=== PATIENT | female | born 1980 | race Caucasian/White ===

== ENCOUNTER → 2017-06-04 | Outpatient (CLI) | payer OTHER | LOC: BMCIMAGING 14:41 | PROVIDERS: ATTEND Physician Assistant | DX: R10.11 Right upper quadrant pain (principal) ==

== ENCOUNTER 2017-06-05 14:24 | Emergency (ER) | payer OTHER ==
--- NOTE | 2017-06-05 14:46 | EDPHY ---
HPI/HX/ROS/PE/MDM Narrative: CHIEF COMPLAINT: Abdominal and back pain, dizzy, chills HISTORY OF PRESENT ILLNESS: The patient is a 36 y/o female with a history of kidney stones and ovarian cysts complaining of intermittent bilateral abdominal and back pain, chills, and dizziness for one month. During the past month she has felt nauseous intermittently and vomited several times, but lately her nausea has been consistent for 4 days. 4 days ago she had a sharp right abdominal pain radiating to her back. She has since had a dull pain in her right back. Eating food does not affect this pain. Her urine has had a foul smell and she feels like she has not been able to void completely. Denies hematuria. Yesterday she saw her PCP, Bree DIEGO, who noticed that there was an elevated WBC of 10.86 and had some concerns regarding patients urine. (Patient initially stated white cells were presents and then stated red cells. This urine has been cultures and is currently growing 3 colony counts.). She had a RUQ US yesterday, with normal results. No fever, cough, chest pain, shortness of breath, palpitations, diarrhea, headache, lightheadedness. REVIEW OF SYSTEMS: Aside from elements discussed in the HPI, a comprehensive 10-point review of systems was reviewed and is negative. PAST MEDICAL HISTORY: Kidney stone, ovarian cyst SOCIAL HISTORY: Lives in [place], friends at bedside, marijuana use, no IV drug use VITAL SIGNS: Reviewed by me GENERAL: Well-developed, well-nourished, resting comfortably in no respiratory distress. HEENT: Atraumatic. Eyes: No icterus, no injection. Mouth: moist mucous membranes. No erythema or lesions. Neck: supple with no adenopathy. LUNGS: Clear to auscultation bilaterally, no wheezes, rhonchi or rales. CARDIAC: Regular rate and rhythm, no rubs, murmurs or gallops. ABDOMEN: Palpation of abdomen results in increased epigastric discomfort but there is no tenderness to palpation. Soft, nontender, nondistended, bowel sounds normal. BACK: No CVA tenderness. EXTREMITIES: No trauma. No edema. Range of motion is normal throughout. NEURO: Alert and oriented, grossly nonfocal. SKIN: Warm and dry, no rash. PSYCHIATRIC: Normal mentation, no agitation. Portions of this note were transcribed by a medical orderly. I personally performed a history, physical exam, medical decision making, and confirmed accuracy of information the transcribed note. ED Course: The patient is a 36 y/o female with a history of kidney stones and ovarian cysts presenting with non-reproducible bilateral abdominal and low back pain. On exam the palpation of her abdomen results in increased epigastric discomfort but there is no tenderness to palpation. Yesterday she had a normal RUQ US, lipase, and LFT's. However, her PCP was concerned of an infection due to an elevated WBC of 10.86. Labs, UA, chest x-ray, and abdominopelvic CT ordered. 1L IV NS administered. 1559: Patient's urine does not reveal an infection, but it is very dilute. Her chest x-ray is negative for acute findings. 1634: Spoke with radiologist regarding patient's abdominopelvic CT. The CT reveals constipation and nonobstructive bilateral nephrolithiasis. 1639: Patient's urine cultures from yesterday reveal 3 colony counts, I do not suspect a UTI. 30mg IV Toradol administered. 1713: Reassessed patient and discussed laboratory and imaging findings. Upon further discussion, she now believes she has passed a kidney stone which caused her pain. I have advised her to use MiraLax for her constipation. Return precautions provided; patient is comfortable with this plan. MDM: After obtaining the patients history and performing an examination, differential diagnosis considered included but was not limited to appendicitis, cholecystitis, gastritis, pancreatitis, kidney stones, urinary tract infections and other causes. - Data Points Imaging: Discussed imaging studies w/ scallop raker Radiologist, I viewed and interpreted images myself Laboratory Results: Laboratory Results 06/05/17 15:36 06/05/17 15:36 Medications Given: Discontinued Medications Sodium Chloride (Ns) 1,000 mls @ 0 mls/hr IV ONCE ONE; Wide Open PRN Reason: Protocol Stop: 06/05/17 15:16 Last Admin: 06/05/17 15:54 Dose: 1,000 mls Ketorolac Tromethamine (Toradol) 30 mg IVP EDNOW ONE Stop: 06/05/17 16:40 Last Admin: 06/05/17 16:51 Dose: 30 mg General Time Seen by Provider: 06/05/17 14:41 Initial Vital Signs: Initial Vital Signs Temperature (C) 36.4 C 06/05/17 14:29 Heart Rate 108 H 06/05/17 14:29 Respiratory Rate 16 06/05/17 14:29 Blood Pressure 138/77 H 06/05/17 14:29 O2 Sat (%) 97 06/05/17 14:29 O2 Delivery Mode Room Air Allergies/Adverse Reactions: No Known Allergies Allergy (Unverified 06/05/17 14:28) Home Medications: Medication Instructions Recorded NK [No Known Home Meds] 06/05/17 Departure - Departure Disposition: Home, Routine, Self-Care Clinical Impression: Bilateral nephrolithiasis Constipation Qualifiers: Constipation type: unspecified constipation type Qualified Code(s): K59.00 - Constipation, unspecified Abdominal pain Qualifiers: Abdominal location: right upper quadrant Qualified Code(s): R10.11 - Right upper quadrant pain Condition: Good Instructions: Constipation (ED), Acute Abdominal Pain (ED) Additional Instructions: You have non-obstructing kidney stones. I recommend following up with a urologist in the next week. Take MiraLax as instructed for constipation. Follow-up with your primary doctor within 72 hours. Return to the Emergency Department for fever, chest pain, shortness of breath, increasing pain or other worsening of condition. Referrals: Bree Jeronimo PA [Primary Care Provider] - As per Instructions James De Leon MD [Medical Doctor] - As per Instructions Report Scribed for: Swati Nguyen Report Scribed by: Huong Maya Date of Report: 06/05/17 Time of Report: 14:46
[2017-06-05] MEDS ORDERED: NS 1,000 ML IV ONE (15:15)
[2017-06-05 15:44] LABS: PLATELET COUNT 277 10^3/uL (150-400)
[2017-06-05] MEDS ORDERED: KETOROLAC 30 MG/1 ML SDV IVP ONE (16:39)
[2017-06-05 17:00] VITALS: BP 127/75; PULSE 73; RESP 18; TEMP 97.9; O2SAT 95
== END 2017-06-05 17:45 | disposition home or self-care (01) ==
PROC: 3E0337Z Introduction of Electrolytic and Water Balance Substance into Peripheral Vein, Percutaneous Approach (ICD-10-PCS; principal; 2017-06-05)
DX: N20.0 Calculus of kidney (principal); K59.00 Constipation, unspecified; E86.9 Volume depletion, unspecified
CPT/HCPCS: 96374; J1885

== ENCOUNTER 2017-08-05 14:27 | Emergency (ER) | payer OTHER ==
[2017-08-05 14:34] VITALS: TEMP 97.3
[2017-08-05] MEDS ORDERED: NS 1,000 ML IV ONE (15:37)
--- NOTE | 2017-08-05 15:38 | EDPHY ---
General Time Seen by Provider: 08/05/17 15:25 Narrative: CHIEF COMPLAINT: Flank pain, urinary tract infection HISTORY OF PRESENT ILLNESS: Patient complains of right flank pain and possible urinary tract infection. She states that she has been dealing with right flank pain for approximately 3 weeks. It has worsened over the past 2 weeks. It is constant but does wax and wane. [id number] now, moderate to severe at times. Associated with increased urinary frequency, dysuria, malodorous urine, subjective fevers and sweats. No chest pain or shortness of breath. No lower abdominal pain. No vaginal bleeding or discharge. No pelvic pain. No difficulty with urination. She has a long history of nephrolithiasis with multiple stones past. She was seen here in June with bilateral nonobstructing nephrolithiasis with no intervention surgically. She has taken no medication. No other associated complaints or modifying factors. LMP ended 3 days ago REVIEW OF SYSTEMS: Ten systems reviewed and are negative unless otherwise noted in the HPI PCP: None currently SPECIALISTS: None PAST MEDICAL HISTORY: Nephrolithiasis, ovarian cysts PAST SURGICAL HISTORY: No recent surgical history SOCIAL HISTORY: Daily smoker. No drug or alcohol use. Works locally as a massage therapist FAMILY HISTORY: Noncontributory EXAMINATION General Appearance: Alert, no distress. Resting comfortably. Well-developed well-nourished. Head: normocephalic, atraumatic Eyes: Pupils equal and round, no conjunctival pallor or injection ENT, Mouth: Mucous membranes moist Neck: Normal inspection, supple, non-tender Respiratory: Lungs are clear to auscultation. No wheezing, rhonchi or crackles Cardiovascular: Regular rate and rhythm. No murmur with good signs of perfusion Gastrointestinal: Abdomen is soft and nondistended. Mild right CVA tenderness. No guarding. No tympany. No rigidity. Back: non-tender, no bony abnormalities Neurological: A&O, nonfocal, normal gait Skin: Warm and dry, no rash. No petechiae or purpura Extremities: Nontender, no pedal edema Psychiatric: Mood and affect normal DIFFERENTIAL DIAGNOSES: Including but not limited to nephrolithiasis, ureteral stone, renal colic, pyelonephritis, UTI MDM: 3:35 p.m. Right flank pain with history of bilateral nephrolithiasis and patient concern for urinary tract infection. She has had subjective fever and chills but afebrile here. Vital signs are within normal limits. She is in no acute distress. Her abdominal exam is benign with mild right flank pain. Urinalysis is pending. I have ordered laboratory studies, IV fluid, urine strainer and ultrasound of the retroperitoneum. She has had multiple CT scans in past, thus I am attempting to avoid radiation. Suspect nonobstructing nephrolithiasis, less likely obstructive uropathy. She is in no acute distress requiring no pain medications at this time. 4:27 p.m. Notified by radiologist Dr. Salinas. We discussed the ultrasound findings of the retroperitoneum. No obstructive uropathy present. 4:55 p.m. Patient re-evaluated. She is feeling well at this time. No flank pain. She does still have the dysuria. We discuss possibility of musculoskeletal pain. We discussed other urinary tract etiologies. Urine culture has been sent I do not feel she warrants empiric antibiotic coverage at this time. She has contacted a urologist while she was waiting in the emergency department room. She contacted Dr. Melton office and is arranging for an appointment. We discussed ice, heating pads and anti-inflammatories. We discussed ED precautions for worsening pain, difficulty urinating, fever or vomiting. At this point I do feel she is stable for discharge home, and she is declining any pain medication or prescription. She is comfortable this plan and discharged in stable condition. SUPERVISION: Patient was independently examined, but I discussed the case with my secondary supervising physician Dr. Villagomez - Diagnostics Imaging Results: Imaging Impressions Abdomen/Pelvis Ultrasound 08/05/17 15:37 Impression: 1. Normal renal ultrasound. 2. Limited assessment of known nephrolithiasis. Findings discussed with Chandana Tejada 08/05/2017 at 16:26. - History Smoking Status: Current every day smoker - Objective Vital Signs: Initial Vital Signs Temperature (C) 97.3 F 08/05/17 14:32 Heart Rate 91 08/05/17 14:32 Respiratory Rate 17 08/05/17 14:32 Blood Pressure 141/86 H 08/05/17 14:32 O2 Sat (%) 95 08/05/17 14:32 O2 Delivery Mode Room Air Allergies/Adverse Reactions: No Known Allergies Allergy (Verified 08/05/17 14:32) Home Medications: Medication Instructions Recorded NK [No Known Home Meds] 06/05/17 Laboratory Results: Laboratory Results 08/05/17 15:53 08/05/17 15:53 08/05/17 08/05/17 08/05/17 15:53 15:53 15:53 WBC 8.13 10^3/uL 10^3/uL (3.80-9.50) RBC 5.01 10^6/uL 10^6/uL (4.18-5.33) Hgb 15.4 g/dL g/dL (12.6-16.3) Hct 43.7 % % (38.0-47.0) MCV 87.2 fL fL (81.5-99.8) MCH 30.7 pg pg (27.9-34.1) MCHC 35.2 g/dL g/dL (32.4-36.7) RDW 12.7 % % (11.5-15.2) Plt Count 306 10^3/uL 10^3/uL (150-400) MPV 9.3 fL fL (8.7-11.7) Neut % (Auto) 65.2 % % (39.3-74.2) Lymph % (Auto) 26.2 % % (15.0-45.0) [place] % (Auto) 6.2 % % (4.5-13.0) Eos % (Auto) 1.6 % % (0.6-7.6) Baso % (Auto) 0.6 % % (0.3-1.7) Nucleat RBC Rel Count 0.0 % % (0.0-0.2) Absolute Neuts (auto) 5.30 10^3/uL 10^3/uL (1.70-6.50) Absolute Lymphs (auto) 2.13 10^3/uL 10^3/uL (1.00-3.00) Absolute Monos (auto) 0.50 10^3/uL 10^3/uL (0.30-0.80) Absolute Eos (auto) 0.13 10^3/uL 10^3/uL (0.03-0.40) Absolute Basos (auto) 0.05 10^3/uL 10^3/uL (0.02-0.10) Absolute Nucleated RBC 0.00 10^3/uL 10^3/uL (0-0.01) Immature Gran % 0.2 % % (0.0-1.1) Immature Gran # 0.02 10^3/uL 10^3/uL (0.00-0.10) Sodium 139 mEq/L mEq/L (135-145) Potassium 3.8 mEq/L mEq/L (3.5-5.2) Chloride 106 mEq/L mEq/L (97-110) Carbon Dioxide 23 mEq/l mEq/l (22-31) Anion Gap 10 mEq/L mEq/L (8-16) BUN 8 mg/dL mg/dL (7-23) Creatinine 0.7 mg/dL mg/dL (0.6-1.0) Estimated GFR > 60 Glucose 108 mg/dL H mg/dL (70-100) Calcium 9.8 mg/dL mg/dL (8.5-10.4) Total Bilirubin 0.5 mg/dL mg/dL (0.1-1.4) Conjugated Bilirubin 0.2 mg/dL mg/dL (0.0-0.5) Unconjugated Bilirubin 0.3 mg/dL mg/dL (0.0-1.1) AST 16 IU/L IU/L (14-46) ALT 34 IU/L IU/L (9-52) Alkaline Phosphatase 65 IU/L IU/L (38-126) Total Protein 6.8 g/dL g/dL (6.3-8.2) Albumin 4.3 g/dL g/dL (3.5-5.0) Lipase 65 IU/L IU/L (23-300) Beta HCG, Qual NEGATIVE Urine Color Urine Appearance Urine pH Ur Specific [place] Urine Protein Urine Ketones Urine Blood Urine Nitrate Urine Bilirubin Urine Urobilinogen Ur Leukocyte Esterase Urine RBC Urine WBC Ur Epithelial Cells Urine Bacteria Urine Mucus Urine Glucose 08/05/17 08/05/17 15:15 14:55 WBC RBC Hgb Hct MCV MCH MCHC RDW Plt Count MPV Neut % (Auto) Lymph % (Auto) [place] % (Auto) Eos % (Auto) Baso % (Auto) Nucleat RBC Rel Count Absolute Neuts (auto) Absolute Lymphs (auto) Absolute Monos (auto) Absolute Eos (auto) Absolute Basos (auto) Absolute Nucleated RBC Immature Gran % Immature Gran # Sodium Potassium Chloride Carbon Dioxide Anion Gap BUN Creatinine Estimated GFR Glucose Calcium Total Bilirubin Conjugated Bilirubin Unconjugated Bilirubin AST ALT Alkaline Phosphatase Total Protein Albumin Lipase Beta HCG, Qual Urine Color PALE YELLOW REJ Urine Appearance CLEAR REJ Urine pH 6.0 REJ (5.0-7.5) Ur Specific [place] 1.006 REJ (1.002-1.030) Urine Protein NEGATIVE REJ (NEGATIVE) Urine Ketones NEGATIVE REJ (NEGATIVE) Urine Blood NEGATIVE REJ (NEGATIVE) Urine Nitrate NEGATIVE REJ (NEGATIVE) Urine Bilirubin NEGATIVE REJ (NEGATIVE) Urine Urobilinogen NEGATIVE EU EU REJ (0.2-1.0) Ur Leukocyte Esterase NEGATIVE REJ (NEGATIVE) Urine RBC 1-3 /hpf /hpf (0-3) Urine WBC 1-3 /hpf /hpf (0-3) Ur Epithelial Cells TRACE /lpf /lpf (NONE-1+) Urine Bacteria 2+ /hpf H /hpf (NONE SEEN) Urine Mucus TRACE /lpf /lpf (NONE-1+) Urine Glucose NEGATIVE REJ (NEGATIVE) Medications Given: Discontinued Medications Sodium Chloride (Ns) 1,000 mls @ 0 mls/hr IV EDNOW ONE; Wide Open PRN Reason: Protocol Stop: 08/05/17 15:38 Last Admin: 08/05/17 15:51 Dose: 1,000 mls Departure - Departure Disposition: Home, Routine, Self-Care Clinical Impression: Acute flank pain Condition: Good Instructions: Flank Pain (ED), Musculoskeletal Pain (ED) Additional Instructions: 1. Recommend heating pad apply to affected area as needed 2. Recommend [id number] anti-inflammatories as discussed as needed 3. Contact Urology for outpatient follow-up 4. Contact primary care physician for outpatient follow-up 5. ED precautions for worsening pain, fever, vomiting, hematuria, difficulty urinating 6. A urine culture was obtained well your here, this will result in the next 48 hr and we will contact you with a positive result if needed Referrals: Reagan Saucedo MD [Medical Doctor] - As per Instructions
[2017-08-05 16:04] LABS: PLATELET COUNT 306 10^3/uL (150-400)
[2017-08-05 16:43] VITALS: BP 119/71; PULSE 73; RESP 16; O2SAT 98
== END 2017-08-05 17:21 | disposition home or self-care (01) ==
DX: R10.9 Unspecified abdominal pain (principal); E86.9 Volume depletion, unspecified; F17.200 Nicotine dependence, unspecified, uncomplicated